=== PATIENT | male | born 2000 | race Caucasian/White ===

== ENCOUNTER 2023-08-08 11:50 | Emergency (ER) | payer OTHER ==
[2023-08-08] MEDS ORDERED: Diphtheria,Pertussis(Acell),Tetanus Vaccine 0.5 ML Syringe IM ONE (12:03)
== END 2023-08-08 12:15 | disposition home or self-care (01) ==
LOC: FB.ED 11:50
DX: S61.011A Laceration without foreign body of right thumb without damage to nail, initial encounter (principal); Z23 Encounter for immunization; W26.0XXA Contact with knife, initial encounter
CPT/HCPCS: 12002; 90471; 90715; 99282-25

== ENCOUNTER 2024-08-01 10:54 | Emergency (ER) | payer OTHER | END 2024-08-01 11:20 | disposition home or self-care (01) | LOC: FB.ED 10:54 | DX: S61.012A Laceration without foreign body of left thumb without damage to nail, initial encounter (principal); W26.8XXA Contact with other sharp object(s), not elsewhere classified, initial encounter | CPT/HCPCS: 99282 ==